=== PATIENT | female | born 1985 | race Caucasian/White ===

== ENCOUNTER 2018-10-01 12:02 | Emergency (ER) | payer SELFPAY ==
[2018-10-01 12:49] LABS: RAPID GROUP A STREP NEGATIVE (NEGATIVE)
== END 2018-10-01 13:09 | disposition home or self-care (01) ==
LOC: EDH 12:02
DX: J09.X2 Influenza due to identified novel influenza A virus with other respiratory manifestations (principal); Z72.0 Tobacco use
CPT/HCPCS: 71045; 87804; 87880